=== PATIENT | female | born 1945 | race Caucasian/White ===

== ENCOUNTER → 2016-09-01 16:49 | Outpatient (CLI) | payer MEDICARE | END | disposition home or self-care (01) | LOC: D.MAMMO 08-21 16:15 | DX: Z12.31 Encounter for screening mammogram for malignant neoplasm of breast (principal) ==

== ENCOUNTER 2018-05-14 12:20 | Outpatient (CLI) | payer MEDICARE ==
[~2018-05-14] VITALS: Ht 162.6 cm; Wt 68.2 kg
[2018-05-14 14:06] VITALS: BP 145/56; Ht 162.6 cm; Wt 68.2 kg
--- NOTE | 2018-05-14 17:15 | NUR ---
TOLERATING PRBC'S WITHOUT SIGNS OR SYMPTOMS OF TRANSNFUSION REACTION, LYING IN BED, WATCHING TV
== END 2018-05-14 18:55 | disposition home or self-care (01) ==
LOC: D.OPS 12:20
PROVIDERS: ATTEND Family Medicine
DX: D64.9 Anemia, unspecified (principal)